=== PATIENT | male | born 1980 | race Caucasian/White ===

== ENCOUNTER 2021-04-23 15:12 | Emergency (ER) | payer MEDICAID ==
[~2021-04-23] VITALS: Ht 182.9 cm; Wt 118.2 kg
[~2021-04-23 15:12] MED LIST: ALPR-623 PO; CLIN-97 PO; CLIN150C8 PO; FLUO20CA39 PO; NORCO10T PO
[2021-04-23 16:20] VITALS: BP 132/96
[2021-04-23] MEDS ORDERED: IBUP-1984 PO (17:13)
== END 2021-04-23 17:45 | disposition home or self-care (01) ==
LOC: ER 15:12
DX: M25.512 Pain in left shoulder (principal); W01.0XXA Fall on same level from slipping, tripping and stumbling without subsequent striking against object, initial encounter; Y93.89 Activity, other specified; Y92.89 Other specified places as the place of occurrence of the external cause; Y99.8 Other external cause status; Z79.899 Other long term (current) drug therapy
CPT/HCPCS: 73030; 99283

== ENCOUNTER 2021-05-08 23:18 | Emergency (ER) | payer MEDICAID ==
[~2021-05-08] VITALS: Ht 182.9 cm; Wt 118.2 kg
[2021-05-09 00:08] VITALS: BP 183/97
[2021-05-09] MEDS ORDERED: ALBU8HFA PO (02:46)
== END 2021-05-09 03:06 | disposition home or self-care (01) ==
LOC: ER 23:19
DX: B34.9 Viral infection, unspecified (principal); Z20.822 Contact with and (suspected) exposure to COVID-19; Z79.899 Other long term (current) drug therapy; Z99.2 Dependence on renal dialysis; Z91.040 Latex allergy status
CPT/HCPCS: 71045; 87635; 99284; C9803; 99285

== ENCOUNTER 2021-05-19 11:30 | Emergency (ER) | payer MEDICAID ==
[~2021-05-19] VITALS: Ht 182.9 cm; Wt 124.1 kg
[~2021-05-19 11:30] MED LIST changes: +ALBU8HFA PO
[2021-05-19 11:47] VITALS: BP 135/93
[2021-05-19] MEDS ORDERED: BENZ-38 PO (13:05)
[2021-05-19] MEDS ORDERED: AZIT500T PO (13:05)
== END 2021-05-19 13:46 | disposition home or self-care (01) ==
LOC: ER 11:31
DX: J06.9 Acute upper respiratory infection, unspecified (principal); Z20.822 Contact with and (suspected) exposure to COVID-19; Z91.040 Latex allergy status; Z79.899 Other long term (current) drug therapy
CPT/HCPCS: 71045; 87635; 99284; C9803

== ENCOUNTER 2021-09-12 08:07 | Emergency (ER) | payer MEDICAID ==
[~2021-09-12] VITALS: Ht 182.9 cm; Wt 118.2 kg
[~2021-09-12 08:07] MED LIST changes: -ALBU8HFA PO
[2021-09-12] MEDS ORDERED: morphine 4 MG/ML inj SYRINge IM ONE (09:30)
[2021-09-12] MEDS ORDERED: MELO15TA13 PO (11:19)
[2021-09-12 11:56] VITALS: BP 137/99
== END 2021-09-12 11:59 | disposition home or self-care (01) ==
LOC: ER 08:08
DX: S24.109A Unspecified injury at unspecified level of thoracic spinal cord, initial encounter (principal); M54.50 Low back pain, unspecified; M54.6 Pain in thoracic spine; Z91.040 Latex allergy status; Z79.2 Long term (current) use of antibiotics; Z79.899 Other long term (current) drug therapy; W19.XXXA Unspecified fall, initial encounter; Y93.89 Activity, other specified; Y92.89 Other specified places as the place of occurrence of the external cause; Y99.8 Other external cause status
CPT/HCPCS: 72070; 96372; 99283; J2270

== ENCOUNTER 2021-12-11 08:04 | Emergency (ER) | payer MEDICAID ==
[~2021-12-11] VITALS: Ht 182.9 cm; Wt 127.3 kg
[~2021-12-11 08:04] MED LIST changes: +MELO15TA13 PO
[2021-12-11 08:05] VITALS: BP 162/90
[2021-12-11] MEDS ORDERED: SULF1TAB49 PO (08:15)
== END 2021-12-11 08:28 | disposition home or self-care (01) ==
LOC: ER 08:04
DX: A49.02 Methicillin resistant Staphylococcus aureus infection, unspecified site (principal); L08.9 Local infection of the skin and subcutaneous tissue, unspecified; Z91.040 Latex allergy status; Z79.2 Long term (current) use of antibiotics; Z79.899 Other long term (current) drug therapy
CPT/HCPCS: 99283

== ENCOUNTER 2022-01-10 15:35 | Emergency (ER) | payer MEDICAID ==
[~2022-01-10] VITALS: Ht 182.9 cm; Wt 127.3 kg
[2022-01-10 16:52] LABS: CLARITY,URINE SLIGHTLY CLOUDY (Clear); COLOR,URINE YELLOW (Yellow); GLUCOSE, URINE NEGATIVE (Neg); KETONES,URINE NEGATIVE (Neg); LEUKOCYTE ESTERASE ,URINE NEGATIVE (Neg); NITRITES, URINE NEGATIVE (Neg); OCCULT BLOOD,URINE NEGATIVE (Neg); PH,URINE 5.5 (4.8-8.0); PROTEIN,URINE NEGATIVE (Neg); UROBILINOGEN,URINE 0.2 E.U/dL (0.2-1.0)
[2022-01-10 16:55] LABS: BASOPHILS # (AUTO) 0.1 X10'3 (0-0.2); BASOPHILS % (AUTO) 0.8 % (0-1); EOSINOPHILS # (AUTO) 0.1 X10'3 (0-0.9); EOSINOPHILS % (AUTO) 0.8 % (0-6); HEMATOCRIT 45.1 % (42.0-52.0); HEMOGLOBIN 15.4 g/dl (14.0-17.9); LYMPHOCYTES # (AUTO) 2.6 X10'3 (1.1-4.8); LYMPHOCYTES % (AUTO) 25.9 % (21-51); MEAN CORPUSCULAR HEMOGLOBIN 29.2 PG (27.0-31.0); MEAN CORPUSCULAR HGB CONC 34.2 g/dL (33.0-36.5); MEAN CORPUSCULAR VOLUME 85.2 FL (78-98); MEAN PLATELET VOLUME 8.7 FL (7.4-10.4); MONOCYTES # (AUTO) 0.5 X10'3 (0-0.9); NEUTROPHILS # (AUTO) 6.7 X10'3 (1.8-7.7); NEUTROPHILS % (AUTO) 67.5 % (42-75); PLATELET COUNT 295 X10'3 (140-440); RED BLOOD COUNT 5.29 X10'6 (4.70-6.10); RED CELL DISTRIBUTION WIDTH 13.9 % (11.5-14.5); WHITE BLOOD COUNT 9.9 X10'3 (4.5-11.0)
[2022-01-10 17:05] LABS: ALANINE AMINOTRANSFERASE 66 U/L (12-78); ALBUMIN 4.3 G/DL (3.4-5.0); ALBUMIN/GLOBULIN RATIO 1.2 (1.1-1.5); ALKALINE PHOSPHATASE 65 IU/L (46-116); ANION GAP 11 (8-16); BILIRUBIN,TOTAL 0.4 MG/DL (0.1-1.0); BLOOD UREA NITROGEN 14 MG/DL (7-18); CALCIUM 8.6 MG/DL (8.5-10.1); CHLORIDE 104 MMOL/L (99-107); CREATININE 1.17 MG/DL (0.60-1.10); LIPASE 92 U/L (73-393); SODIUM 141 MMOL/L (135-145); TOTAL CARBON DIOXIDE 26.3 MMOL/L (24-32); TOTAL PROTEIN 7.8 G/DL (6.4-8.2); eGFR 69 ML/MIN
[2022-01-10 17:06] LABS: UA COLLECTION TYPE CLN CATCH MIDSTREAM
[2022-01-10 17:07] LABS: BACTERIA,URINE NONE SEEN /HPF (Neg); FINE GRANULAR CAST 0-3 /LPF (NEGATIVE); RBC,URINE NONE SEEN /HPF (0-2); SQUAMOUS EPITHELIAL CELL,UR NONE SEEN /LPF (FEW); WBC,URINE 0-4 /HPF (0-4)
[2022-01-10] MEDS ORDERED: IBUP-1984 PO (17:33)
[2022-01-10] MEDS ORDERED: ketorolac tromethamine 15mg/ml inj. IM ONE (17:35)
[2022-01-10 17:41] LABS: ASPARTATE AMINO TRANSFERASE 32 U/L (10-37); GLUCOSE 117 MG/DL (70-104)
[2022-01-10 17:52] VITALS: BP 153/89
== END 2022-01-10 17:57 | disposition home or self-care (01) ==
LOC: ER 15:36
DX: S39.012A Strain of muscle, fascia and tendon of lower back, initial encounter (principal); Z91.040 Latex allergy status; X58.XXXA Exposure to other specified factors, initial encounter; Y93.89 Activity, other specified; Y92.89 Other specified places as the place of occurrence of the external cause; Y99.8 Other external cause status
CPT/HCPCS: 36415; 80053; 81001; 83690; 85025; 96372; 99283; J1885

== ENCOUNTER 2022-04-15 09:15 | Emergency (ER) | payer MEDICAID ==
[~2022-04-15] VITALS: Ht 182.9 cm; Wt 130.0 kg
[2022-04-15 09:18] VITALS: BP 136/88
--- NOTE | 2022-04-17 10:34 | NUR ---
PT THROAT CXL CAME BACK GROUP C STREP. PER DR WILKERSON RX FOR PEN VK 500MG 1 QID X 10DAYS. ATTEMPTED TO CALL PT AT [phone] MSG LEFT ON VM.
== END 2022-04-15 10:49 | disposition home or self-care (01) ==
LOC: ER 09:15
DX: J02.9 Acute pharyngitis, unspecified (principal); Z86.14 Personal history of Methicillin resistant Staphylococcus aureus infection; Z91.040 Latex allergy status; Z79.899 Other long term (current) drug therapy
CPT/HCPCS: 87077; 87081; 87880; 99283

== ENCOUNTER 2022-08-18 16:18 | Emergency (ER) | payer MEDICAID ==
[~2022-08-18] VITALS: Ht 180.3 cm; Wt 136.4 kg
[2022-08-18 17:20] LABS: CLARITY,URINE CLEAR (Clear); COLOR,URINE YELLOW (Yellow); GLUCOSE, URINE NEGATIVE (Neg); KETONES,URINE NEGATIVE (Neg); LEUKOCYTE ESTERASE ,URINE NEGATIVE (Neg); NITRITES, URINE NEGATIVE (Neg); OCCULT BLOOD,URINE NEGATIVE (Neg); PH,URINE 5.5 (4.8-8.0); PROTEIN,URINE NEGATIVE (Neg); UROBILINOGEN,URINE 0.2 E.U/dL (0.2-1.0)
[2022-08-18 17:24] LABS: UA COLLECTION TYPE CLN CATCH MIDSTREAM
[2022-08-18 17:25] LABS: BASOPHILS # (AUTO) 0.1 X10'3 (0-0.2); BASOPHILS % (AUTO) 0.8 % (0-1); EOSINOPHILS # (AUTO) 0.3 X10'3 (0-0.9); HEMATOCRIT 45.5 % (42.0-52.0); HEMOGLOBIN 14.8 g/dl (14.0-17.9); LYMPHOCYTES # (AUTO) 2.5 X10'3 (1.1-4.8); LYMPHOCYTES % (AUTO) 28.8 % (21-51); MEAN CORPUSCULAR HEMOGLOBIN 27.9 PG (27.0-31.0); MEAN CORPUSCULAR HGB CONC 32.4 g/dL (33.0-36.5); MEAN CORPUSCULAR VOLUME 86.2 FL (78-98); MEAN PLATELET VOLUME 8.4 FL (7.4-10.4); MONOCYTES # (AUTO) 0.5 X10'3 (0-0.9); MONOCYTES % (AUTO) 5.6 % (2-12); NEUTROPHILS # (AUTO) 5.3 X10'3 (1.8-7.7); NEUTROPHILS % (AUTO) 61.8 % (42-75); PLATELET COUNT 292 X10'3 (140-440); RED BLOOD COUNT 5.28 X10'6 (4.70-6.10); RED CELL DISTRIBUTION WIDTH 14.1 % (11.5-14.5); WHITE BLOOD COUNT 8.7 X10'3 (4.5-11.0)
[2022-08-18 17:34] LABS: ALANINE AMINOTRANSFERASE 67 U/L (12-78); ALBUMIN 4.1 G/DL (3.4-5.0); ALBUMIN/GLOBULIN RATIO 1.2 (1.1-1.5); ALKALINE PHOSPHATASE 70 IU/L (46-116); ANION GAP 7 (8-16); ASPARTATE AMINO TRANSFERASE 36 U/L (10-37); BILIRUBIN,TOTAL 0.4 MG/DL (0.1-1.0); BLOOD UREA NITROGEN 15 MG/DL (7-18); BUN/CREATININE RATIO 12.7 (5.4-32.0); CALCIUM 9.1 MG/DL (8.5-10.1); CHLORIDE 103 MMOL/L (99-107); CREATININE 1.18 MG/DL (0.60-1.10); GLUCOSE 129 MG/DL (70-104); LIPASE 108 U/L (73-393); POTASSIUM 3.8 MMOL/L (3.5-5.1); SODIUM 139 MMOL/L (135-145); TOTAL CARBON DIOXIDE 28.8 MMOL/L (24-32); TOTAL PROTEIN 7.5 G/DL (6.4-8.2); eGFR 68 ML/MIN
[2022-08-18 19:03] VITALS: BP 167/95
[2022-08-18] MEDS ORDERED: POLY119P2 PO (19:32)
== END 2022-08-18 19:52 | disposition home or self-care (01) ==
LOC: ER 16:18
DX: K59.00 Constipation, unspecified (principal); R10.9 Unspecified abdominal pain; Z86.14 Personal history of Methicillin resistant Staphylococcus aureus infection; Z91.040 Latex allergy status; Z79.899 Other long term (current) drug therapy
CPT/HCPCS: 36415; 74176; 80053; 81003; 83690; 85025; 99284

== ENCOUNTER 2022-09-07 18:15 | Emergency (ER) | payer MEDICAID ==
[~2022-09-07] VITALS: Ht 180.3 cm; Wt 140.0 kg
[~2022-09-07 18:15] MED LIST changes: +POLY119P2 PO
[2022-09-07 18:34] LABS: BASOPHILS # (AUTO) 0.1 X10'3 (0-0.2); BASOPHILS % (AUTO) 1.1 % (0-1); EOSINOPHILS # (AUTO) 0.2 X10'3 (0-0.9); EOSINOPHILS % (AUTO) 1.8 % (0-6); HEMATOCRIT 45.3 % (42.0-52.0); HEMOGLOBIN 15.3 g/dl (14.0-17.9); LYMPHOCYTES # (AUTO) 3.1 X10'3 (1.1-4.8); LYMPHOCYTES % (AUTO) 33.2 % (21-51); MEAN CORPUSCULAR HEMOGLOBIN 28.7 PG (27.0-31.0); MEAN CORPUSCULAR HGB CONC 33.7 g/dL (33.0-36.5); MEAN CORPUSCULAR VOLUME 85.1 FL (78-98); MEAN PLATELET VOLUME 8.2 FL (7.4-10.4); MONOCYTES # (AUTO) 0.6 X10'3 (0-0.9); MONOCYTES % (AUTO) 6.4 % (2-12); NEUTROPHILS # (AUTO) 5.4 X10'3 (1.8-7.7); NEUTROPHILS % (AUTO) 57.5 % (42-75); PLATELET COUNT 288 X10'3 (140-440); RED BLOOD COUNT 5.32 X10'6 (4.70-6.10); WHITE BLOOD COUNT 9.4 X10'3 (4.5-11.0)
[2022-09-07 18:48] LABS: ALANINE AMINOTRANSFERASE 66 U/L (12-78); ALBUMIN 4.1 G/DL (3.4-5.0); ALBUMIN/GLOBULIN RATIO 1.2 (1.1-1.5); ALKALINE PHOSPHATASE 61 IU/L (46-116); ANION GAP 8 (8-16); ASPARTATE AMINO TRANSFERASE 33 U/L (10-37); BILIRUBIN,TOTAL 0.4 MG/DL (0.1-1.0); BLOOD UREA NITROGEN 11 MG/DL (7-18); BUN/CREATININE RATIO 8.7 (10.0-20.0); CALCIUM 8.9 MG/DL (8.5-10.1); CHLORIDE 105 MMOL/L (99-107); CREATININE 1.27 MG/DL (0.60-1.10); GLUCOSE 104 MG/DL (70-104); POTASSIUM 3.9 MMOL/L (3.5-5.1); SODIUM 141 MMOL/L (135-145); TOTAL CARBON DIOXIDE 27.9 MMOL/L (24-32); TOTAL PROTEIN 7.4 G/DL (6.4-8.2); eGFR 63 ML/MIN
[2022-09-07 18:56] LABS: MAGNESIUM 2.1 MG/DL (1.5-2.4)
[2022-09-07] MEDS ORDERED: aspirin 81mg tab.chew PO ONE (19:05)
[2022-09-07 19:25] LABS: D-DIMER < 0.19 MG/L FEU (0-0.50)
[2022-09-07 21:49] VITALS: BP 145/94
== END 2022-09-07 21:50 | disposition home or self-care (01) ==
LOC: ER 18:17
DX: R07.89 Other chest pain (principal); F17.200 Nicotine dependence, unspecified, uncomplicated; R25.2 Cramp and spasm; R22.42 Localized swelling, mass and lump, left lower limb; Z91.040 Latex allergy status
CPT/HCPCS: 36415; 71045; 80053; 83735; 83880; 84484; 85025; 85379; 93005; 93971; 99285

== ENCOUNTER 2022-12-08 10:05 | Emergency (ER) | payer MEDICAID ==
[~2022-12-08] VITALS: Ht 182.9 cm; Wt 136.0 kg
[~2022-12-08 10:05] MED LIST changes: +CLIN-214 PO; -CLIN150C8 PO
[2022-12-08 10:07] VITALS: BP 153/100
[2022-12-08] MEDS ORDERED: ibuprofen tablet 400 MG TABLET PO ONE (10:45)
== END 2022-12-08 11:33 | disposition home or self-care (01) ==
LOC: ER 10:05
DX: S43.401A Unspecified sprain of right shoulder joint, initial encounter (principal); S63.501A Unspecified sprain of right wrist, initial encounter; Z91.040 Latex allergy status; Z79.2 Long term (current) use of antibiotics; Z79.899 Other long term (current) drug therapy; X58.XXXA Exposure to other specified factors, initial encounter; Y93.89 Activity, other specified; Y92.89 Other specified places as the place of occurrence of the external cause
CPT/HCPCS: 29125; 73030; 73110; 99284

== ENCOUNTER 2023-07-09 14:04 | Emergency (ER) | payer MEDICAID ==
[~2023-07-09] VITALS: Ht 175.3 cm; Wt 122.7 kg
[2023-07-09 14:14] VITALS: BP 127/70; PULSE 96; RESP 18; TEMP 97.8; O2SAT 98
[2023-07-09 16:59] LABS: URINE AMPHETAMINE SCREEN NEGATIVE (Neg); URINE BARBITUATE SCREEN NEGATIVE (Neg); URINE BENZODIAZEPINES SCREEN NEGATIVE (Neg); URINE CANNABINOID SCREEN POSITIVE (Neg); URINE COCAINE SCREEN NEGATIVE (Neg); URINE METHADONE SCREEN NEGATIVE (Neg); URINE OPIATE SCREEN NEGATIVE (Neg); URINE PHENCYCLIDINE SCREEN NEGATIVE (Neg)
== END 2023-07-09 16:11 | disposition left against medical advice (07) ==
LOC: ER 14:05
DX: R42 Dizziness and giddiness (principal); T40.0X5A Adverse effect of opium, initial encounter; Y92.89 Other specified places as the place of occurrence of the external cause
CPT/HCPCS: 80305; 99283

== ENCOUNTER 2024-06-25 12:42 | Emergency (ER) | payer MEDICAID ==
[~2024-06-25] VITALS: Ht 180.3 cm; Wt 120.1 kg
[2024-06-25] MEDS: LIDOcaine 1% W/epiNEPHrine 1:100,000 20ml vial SQ ONE (14:17)
[2024-06-25] MEDS ORDERED: SULF1TAB45 PO (14:31)
[2024-06-25] MEDS ORDERED: CEPH-585 PO (14:31)
[2024-06-25 14:38] VITALS: BP 128/81; PULSE 80; RESP 17; O2SAT 98
[2024-06-25] MEDS: cephalexin 250mg capsule PO ONE (14:41)
[2024-06-25] MEDS: sulfamethoxazole/trimethoprim DS (800/160mg) tablet PO ONE (14:41)
[2024-06-25 14:44] VITALS: TEMP 98.7
== END 2024-06-25 14:46 | disposition home or self-care (01) ==
LOC: ER 12:43
DX: L02.414 Cutaneous abscess of left upper limb (principal); F32.A Depression, unspecified; Z91.040 Latex allergy status
CPT/HCPCS: 10060; 99283; A6266; A6258; A6449

== ENCOUNTER 2024-06-27 11:46 | Emergency (ER) | payer MEDICAID ==
[~2024-06-27] VITALS: Ht 180.3 cm; Wt 118.8 kg
[~2024-06-27 11:46] MED LIST changes: +CEPH-585 PO; +SULF1TAB45 PO
[2024-06-27 12:05] VITALS: BP 148/97; PULSE 90; RESP 18; TEMP 97.5; O2SAT 97
== END 2024-06-27 12:35 | disposition home or self-care (01) ==
LOC: ER 11:47
DX: L02.412 Cutaneous abscess of left axilla (principal); F32.A Depression, unspecified; Z48.00 Encounter for change or removal of nonsurgical wound dressing; Z91.040 Latex allergy status; Z79.899 Other long term (current) drug therapy
CPT/HCPCS: 99281